=== PATIENT | male | born 1940 | race African-American/Black ===

== ENCOUNTER 2017-12-22 03:43 | Emergency (ER) | payer MEDICARE, OTHER ==
[2017-12-22] MEDS ORDERED: methylPREDNISolone Sod Succ/PF 125 MG/2 ML VIAL ONE (04:16)
[2017-12-22 04:35] LABS: #Lymphocytes 1.6 thou/uL (1.20-3.40); #Monocytes 0.4 thou/uL (0.11-0.59); #Neutrophils 2.8 thou/uL (1.40-6.50); %Basophils 0.6 % (0.0-1.0); %Eosinophils 0.7 % (0.0-10.0); %Monocytes 7.3 % (0.0-10.0); %Neutrophils 58.4 % (42.0-75.0); Hemoglobin 11.9 g/dL (14.0-18.0); Mean Corpuscular HGB CONC 33.5 g/dL (32.0-36.0); Mean Corpuscular Hemoglobin 28.4 pg (27.0-31.0); Mean Platelet Volume 8.6 fL (7.4-10.4); Platelet Count 146 thou/uL (130-400); RBC Distribution Width 13.6 % (11.5-14.5); White Blood Cell (WBC) Count 4.9 thou/uL (4.8-10.8)
[2017-12-22 05:01] LABS: ALT (SGPT) 25 U/L (8-55); AST (SGOT) 28 U/L (5-34); Albumin 4.3 g/dL (3.4-4.8); Alkaline Phosphatase 86 U/L (40-150); Anion Gap 15 mmol/L (10-20); BUN (Urea Nitrogen) 9 mg/dL (8.4-25.7); Bilirubin, Total 0.5 mg/dL (0.2-1.2); Calc. Creatinine Clearance 0 mL/min (70-130); Calcium 9.3 mg/dL (7.8-10.44); Carbon Dioxide 18 mmol/L (23-31); Chloride 110 mmol/L (98-107); Estimated GFR-MDRD Greater than 90; Globulin 3.9 g/dL (2.4-3.5); Glucose 104 mg/dL (83-110); Potassium 3.6 mmol/L (3.5-5.1); Protein, Total 8.2 g/dL (5.8-8.1); Sodium 139 mmol/L (136-145)
[2017-12-22 07:24] LABS: Bilirubin Negative (Negative); Blood, Urine Negative (Negative); Clarity CLEAR (Clear); Glucose, Urine (Dipstick) Negative (Negative); Leukocyte Negative (Negative); Nitrite Negative (Negative); Protein, Urine (Dipstick) Trace mg/dL (Neg-Trace); Specific Gravity, Urine 1.015 (1.002-1.036); Urobilinogen 0.2 mg/dL (0.2-1.0); pH, Urine 6.5 (5.0-9.0)
--- NOTE | 2017-12-22 08:09 | RAD ---
TWO VIEWS OF THE CHEST: COMPARISON: None. HISTORY: Cough for a few days. FINDINGS: Two views of the chest show a normal-size cardiomediastinal silhouette. There is a pacemaker with it s leads in the right atrium and ventricle. Retained pacer wires are seen overlying the left chest. There is no evidence of consolidation, mass, or pleural effusion. IMPRESSION: No evidence of acute cardiopulmonary disease. POS: [facility]
== END 2017-12-22 08:34 | disposition home or self-care (01) ==
LOC: ERS 03:43
DX: J44.1 Chronic obstructive pulmonary disease with (acute) exacerbation (principal); I10 Essential (primary) hypertension
CPT/HCPCS: 36415; 71046; 80053; 81003; 83880; 85025; 93005; 94640; 94760; 96374; J2930; J7620

== ENCOUNTER 2017-12-30 18:06 | Emergency (ER) | payer MEDICARE, OTHER ==
[2017-12-30 18:26] LABS: #Basophils 0.1 thou/uL (0.0-0.2); #Eosinphils 0.1 thou/uL (0.0-0.7); #Lymphocytes 2.4 thou/uL (1.20-3.40); #Monocytes 0.7 thou/uL (0.11-0.59); %Basophils 0.9 % (0.0-1.0); %Eosinophils 1.1 % (0.0-10.0); %Lymphocytes 39.3 % (21.0-51.0); %Monocytes 10.4 % (0.0-10.0); %Neutrophils 48.2 % (42.0-75.0); Hemoglobin 12.7 g/dL (14.0-18.0); Mean Corpuscular HGB CONC 32.7 g/dL (32.0-36.0); Mean Corpuscular Hemoglobin 28.6 pg (27.0-31.0); Mean Corpuscular Volume 87.6 fL (78.0-98.0); Mean Platelet Volume 8.7 fL (7.4-10.4); Platelet Count 198 thou/uL (130-400); RBC Distribution Width 13.7 % (11.5-14.5); Red Blood Cell (RBC) Count 4.43 mill/uL (4.70-6.10); White Blood Cell (WBC) Count 6.2 thou/uL (4.8-10.8)
--- NOTE | 2017-12-30 18:33 | RAD ---
CHEST ONE VIEW: 12/30/17 HISTORY: Chest pain since last night. COMPARISON: 12/22/17. FINDINGS: Portable upright chest demonstrates a right sided transvenous pacemaker with lead position in the rig ht atrium and right ventricle. There appear to be pacer wires from a remote left sided transvenous pa cemaker. Wire lead position is unchanged. Normal cardiac silhouette. Pulmonary vessels and hilum are normal. Chronic changes in the lung parenchyma. No consolidation or mass. No pneumothorax. Persistent air underneath the left hemidiaphragm likely representing air within the colon. IMPRESSION: No acute cardiopulmonary process. POS: [facility]
[2017-12-30 18:50] LABS: ALT (SGPT) 23 U/L (8-55); AST (SGOT) 19 U/L (5-34); Albumin 4.2 g/dL (3.4-4.8); Alkaline Phosphatase 78 U/L (40-150); Anion Gap 13 mmol/L (10-20); BUN (Urea Nitrogen) 8 mg/dL (8.4-25.7); Bilirubin, Total 0.6 mg/dL (0.2-1.2); CK (CPK) 315 U/L (30-200); Calc. Creatinine Clearance 0 mL/min (70-130); Calcium 9.1 mg/dL (7.8-10.44); Carbon Dioxide 23 mmol/L (23-31); Chloride 109 mmol/L (98-107); Estimated GFR-MDRD Greater than 90; Globulin 3.7 g/dL (2.4-3.5); Glucose 91 mg/dL (83-110); Potassium 3.3 mmol/L (3.5-5.1); Protein, Total 7.9 g/dL (5.8-8.1); Sodium 142 mmol/L (136-145)
[2017-12-30 18:53] LABS: Troponin I Less than 0.010 ng/mL (< 0.028)
[2017-12-30 18:55] LABS: CKMB 10.8 ng/mL (0-6.6)
[2017-12-30] MEDS ORDERED: Furosemide 20 MG/2 ML VIAL ONE (19:25)
[2017-12-30 22:04] LABS: Troponin I Less than 0.010 ng/mL (< 0.028)
== END 2017-12-30 22:45 | disposition home or self-care (01) ==
LOC: ERS 18:06
DX: R07.89 Other chest pain (principal); R60.0 Localized edema; J44.9 Chronic obstructive pulmonary disease, unspecified; I10 Essential (primary) hypertension; Z79.899 Other long term (current) drug therapy; Z79.82 Long term (current) use of aspirin
CPT/HCPCS: 36415; 71045; 80053; 82550; 82553; 83880; 84484; 85025; 93005; 94640; 96374; J1940; J7620

== ENCOUNTER 2018-01-19 08:51 | Outpatient (CLI) | payer MEDICARE, OTHER ==
--- NOTE | 2018-01-19 09:57 | RAD ---
CHEST TWO VIEWS: History: Chest pain. Comparison: 12-30-17 FINDINGS: Cardiac silhouette and pulmonary vasculature are unremarkable. Lungs remain hyperinflated with linear scarring at the lung bases. Mediastinum midline. Bilateral subclavian pacer wires are in place and u nchanged. On the lateral view, the oval density over the cardiac silhouette has the appearance of a small amoun t of pleural fluid within the right major fissure. IMPRESSION: COPD. Small amount of right pleural fluid and other findings are stable. POS: [facility]
== END 2018-01-19 08:52 | disposition home or self-care (01) ==
LOC: RAD 08:51
PROVIDERS: ATTEND Internal Medicine Critical Care Medicine
DX: R06.00 Dyspnea, unspecified (principal); J44.9 Chronic obstructive pulmonary disease, unspecified
CPT/HCPCS: 71046

== ENCOUNTER 2018-02-25 09:01 | Outpatient (CLI) | payer MEDICARE, OTHER | END 2018-02-25 09:02 | disposition home or self-care (01) | LOC: CP 09:01 | PROVIDERS: ATTEND Internal Medicine Critical Care Medicine | DX: J44.9 Chronic obstructive pulmonary disease, unspecified (principal) | CPT/HCPCS: 94060; 94727; 94729 ==

== ENCOUNTER 2018-07-27 10:24 | Outpatient (CLI) | payer MEDICARE, OTHER ==
[2018-07-27 11:13] LABS: Estimated GFR-MDRD - POC Greater than 90
--- NOTE | 2018-07-27 12:06 | CT ---
EXAM: Abdomen and pelvic CT scan with and without contrast: HISTORY: Neoplasm of prostate gland COMPARISON: None FINDINGS: Minimal streaky parenchymal changes in the lung bases as well as left lingular bulla. There is some heterogeneous abnormal asymmetric thickening in the region of the distal esophagus havi ng an appearance certainly concerning for the possibility of a distal esophageal mass. Consider follow-up barium swallow or endoscopy. Liver: Unremarkable. Gallbladder:Unremarkable. Pancreas:Unremarkable Spleen:Unremarkable. Adrenal glands:Unremarkable. Kidneys:No renal calculus or acute obstruction.Multiple bilateral renal cysts up to 3.6 cm on the right. No evidence for bowel obstruction. No CT evidence for acute appendicitis. The urinary bladder is unremarkable. No abscess, adenopathy, or abnormal fluid collection within the abdomen or pelvis. Bilateral hip joint arthrosis worse on the left with prominent acetabular intraosseous cystic change and possible osteonecrosis of the right hip. IMPRESSION: Abnormal nodular asymmetric thickening of the distal esophagus concerning for the possibility of a ma ss. Consider follow-up barium swallow or endoscopy. Bilateral renal cysts. Other findings as above.
--- NOTE | 2018-07-27 14:51 | NM ---
Nuclear medicine bone scan: Radiopharmaceutical: 29.9 mCi technetium 99m MDP, IV. HISTORY: Prostate cancer (malignant neoplasm of prostate) FINDINGS: There is a focus of increased radiotracer activity localizing to the left knee. Increased radiotracer activity is present projecting at the anteromedial right chest within the expected region of the med ial mid right rib near the costochondral junction. There are foci of increased radiotracer activity i nvolving the junction of the manubrium and sternal body as well as the bilateral sternoclavicular abdoulaye nts. Scattered degenerative activity of the spine, shoulders, left wrist, and bilateral feet/ankle ar e present. IMPRESSION: Nonspecific foci of increased ratio tracer activity are present throughout the axial and appendicular skeleton, some of which demonstrate degenerative pattern. There is a nonspecific focus of increased radiotracer activity at the level of the left knee, rounded in morphology, and therefore could locali ze to the patella. Correlate for history of injury within this region and dedicated radiographs of th e left knee are recommended. Focus of increased radiotracer activity overlying the junction of the manubrium and sternal body coul d either relate to degenerative focus versus metastatic process. Recommend correlation with PSA values, and imaging follow-up Transcribed Date/Time: 07/27/2018 3:33 PM
[2018-07-27] MEDS ORDERED: Iopamidol 370 76% 50 ML VIAL FS ONE (16:52)
== END 2018-07-27 10:25 | disposition home or self-care (01) ==
LOC: CT 10:24
PROVIDERS: ATTEND Urology
DX: C61 Malignant neoplasm of prostate (principal); N28.1 Cyst of kidney, acquired; R94.8 Abnormal results of function studies of other organs and systems
CPT/HCPCS: 74178; 78306; 82565; A9503

== ENCOUNTER 2020-03-21 08:55 | Outpatient (CLI) | payer MEDICARE, OTHER ==
--- NOTE | 2020-03-21 10:10 | CT ---
LOW DOSE CT SCAN OF THE CHEST WITHOUT IV CONTRAST FOR LUNG CANCER SCREENING: HISTORY: Nicotine dependence. Former smoker less than 1 pack a day for 25 years. He quit 20 years ago. COPD , shortness of breath. FINDINGS: There is a solid 3 mm peripheral nodule in the right upper lobe and a solid 3 mm nodule in the food inspector omedial aspect of the left upper lobe. Inferior to this is a 5 mm solid-appearing nodule. Bullous changes are seen bilaterally. There is a 4 mm peripheral solid nodule in the right upper lob e. There are mild atelectatic changes in the posterior lung bases. There are vascular calcifications without evidence of aneurysmal dilatation of the thoracic aorta. N o pleural or pericardial effusions are seen. There is subsegmental atelectatic change in the right m iddle lobe. There are degenerative changes in the spine. There are bilateral renal cysts. IMPRESSION: Lung RADS 2 - benign. RECOMMENDATION: Followup low-dose CT of the chest is recommended in 12 months. POS: [facility]
== END 2020-03-21 08:56 | disposition home or self-care (01) ==
LOC: BICCT 08:55
PROVIDERS: ATTEND Internal Medicine Critical Care Medicine
DX: Z12.2 Encounter for screening for malignant neoplasm of respiratory organs (principal); J44.9 Chronic obstructive pulmonary disease, unspecified; Z87.891 Personal history of nicotine dependence
CPT/HCPCS: G0297

== ENCOUNTER 2020-07-13 09:13 | Outpatient (CLI) | payer MEDICARE, OTHER | END 2020-07-13 09:14 | disposition home or self-care (01) | LOC: RAD 09:13 | PROVIDERS: ATTEND Internal Medicine | DX: Z11.59 Encounter for screening for other viral diseases (principal); K21.9 Gastro-esophageal reflux disease without esophagitis; R93.3 Abnormal findings on diagnostic imaging of other parts of digestive tract; R13.10 Dysphagia, unspecified | CPT/HCPCS: 74220 ==

== ENCOUNTER 2020-10-03 13:12 | Outpatient (CLI) | payer MEDICARE, OTHER | END 2020-10-03 13:13 | disposition home or self-care (01) | PROVIDERS: ATTEND Internal Medicine | DX: R13.12 Dysphagia, oropharyngeal phase (principal); R63.3 Feeding difficulties | CPT/HCPCS: 74230 ==

== ENCOUNTER 2021-01-08 09:26 | Outpatient (CLI) | payer MEDICARE, OTHER | END 2021-01-08 09:27 | disposition home or self-care (01) | LOC: BICRAD 09:26 | PROVIDERS: ATTEND Internal Medicine Critical Care Medicine | DX: R06.00 Dyspnea, unspecified (principal); R09.89 Other specified symptoms and signs involving the circulatory and respiratory systems; J90 Pleural effusion, not elsewhere classified | CPT/HCPCS: 71046 ==

== ENCOUNTER 2021-01-15 09:55 | Outpatient (CLI) | payer MEDICARE, OTHER | END 2021-01-15 09:56 | disposition home or self-care (01) | LOC: CT 09:55 | PROVIDERS: ATTEND Internal Medicine Critical Care Medicine | DX: J44.9 Chronic obstructive pulmonary disease, unspecified (principal); K22.8 Other specified diseases of esophagus; R91.8 Other nonspecific abnormal finding of lung field | CPT/HCPCS: 71250 ==

== ENCOUNTER 2021-12-13 21:20 | Inpatient (IN) | payer MEDICARE, OTHER ==
[~2021-12-13 21:20] MED LIST: Iopamidol-370 76% 500 ML 1 ML ONE
[2021-12-13] MEDS ORDERED: Aspirin Chewable 81 MG TAB ONE (21:49)
[2021-12-13] MEDS ORDERED: Nitroglycerin 2% Ointment 1 INCH/1 GM Packet ONE (21:49)
[2021-12-13 22:35] LABS: #Eosinphils 0.1 thou/uL (0.0-0.7); #Lymphocytes 1.4 thou/uL (1.20-3.40); #Monocytes 0.4 thou/uL (0.11-0.59); #Neutrophils 3.3 thou/uL (1.40-6.50); %Basophils 0.3 % (0.0-1.0); %Lymphocytes 27.2 % (21.0-51.0); %Neutrophils 64.5 % (42.0-75.0); Hemoglobin 10.3 g/dL (14.0-18.0); Mean Corpuscular HGB CONC 32.4 g/dL (32.0-36.0); Mean Corpuscular Hemoglobin 25.8 pg (27.0-31.0); Mean Corpuscular Volume 79.7 fL (78.0-98.0); Mean Platelet Volume 11.3 fL (7.4-10.4); Platelet Count 168 thou/uL (130-400); RBC Distribution Width 15.3 % (11.5-14.5); Red Blood Cell (RBC) Count 3.98 mill/uL (4.70-6.10)
[2021-12-13 22:43] LABS: ALT (SGPT) 16 U/L (8-55); AST (SGOT) 23 U/L (5-34); Albumin 4.1 g/dL (3.4-4.8); Alkaline Phosphatase 95 U/L (40-110); Anion Gap 15 mmol/L (10-20); BUN (Urea Nitrogen) 5 mg/dL (8.4-25.7); Bilirubin, Total 0.7 mg/dL (0.2-1.2); Calc. Creatinine Clearance 0 mL/min (70-130); Calcium 8.9 mg/dL (7.8-10.44); Carbon Dioxide 25 mmol/L (23-31); Chloride 106 mmol/L (98-107); Estimated GFR 98; Glucose 89 mg/dL (83-110); Protein, Total 8.1 g/dL (5.8-8.1); Sodium 143 mmol/L (136-145)
[2021-12-13] MEDS ORDERED: Nitroglycerin 0.4 MG TAB (25 Tab Bottle) SL PRN (23:08)
[2021-12-13] MEDS ORDERED: HYDROcodone/Acetaminophen 7.5/325 mg Tablet PO PRN (23:08)
[2021-12-13] MEDS ORDERED: Ondansetron PF 4 MG/2 ML Vial IVP PRN (23:08)
[2021-12-13] MEDS ORDERED: Zolpidem Tartrate 5 MG TAB PO PRN (23:08)
[2021-12-13] MEDS ORDERED: Potassium Chloride 20 MEQ TAB ONE (23:10)
[2021-12-13] MEDS ORDERED: hydrALAZINE 20 MG/ML VIAL SLOW IVP PRN (23:11)
[2021-12-13] MEDS ORDERED: Morphine 2 MG/ML VIAL SLOW IVP PRN (23:11)
[2021-12-13] MEDS ORDERED: Sodium Chloride 0.9% 1,000 ML IV SCH (23:15)
[2021-12-13] MEDS ORDERED: GUAIFENESIN SF SOLN 200 MG/10 ML UDCUP PO PRN (23:25)
[2021-12-13] MEDS ORDERED: Magnesium 2 GM/50 ML(in water) 2 GM in Premix Bag 1 BAG IVPB SCH (23:30)
[2021-12-13] MEDS ORDERED: Potassium Bicarbonate/Cit Ac 20 MEQ TAB PO SCH (23:30)
[2021-12-13] MEDS ORDERED: Tamsulosin HCl 0.4 MG CAP PO SCH (23:45)
[2021-12-13] MEDS ORDERED: Amlodipine 5 MG TAB PO SCH (23:45)
[2021-12-14 00:02] LABS: Magnesium 1.8 mg/dL (1.6-2.6)
[2021-12-14 02:32] LABS: Troponin I Less than 0.010 ng/mL (< 0.028)
[2021-12-14] MEDS: NS 0.9% w/ 20 MEQ KCL 1,000 ML/1,000 ML BAG IV SCH ×2 (02:46→16:28)
[2021-12-14 04:49] LABS: #Eosinphils 0.1 thou/uL (0.0-0.7); #Lymphocytes 1.2 thou/uL (1.20-3.40); #Monocytes 0.4 thou/uL (0.11-0.59); #Neutrophils 2.8 thou/uL (1.40-6.50); %Basophils 0.6 % (0.0-1.0); %Eosinophils 1.2 % (0.0-10.0); %Lymphocytes 27.4 % (21.0-51.0); %Monocytes 9.3 % (0.0-10.0); %Neutrophils 61.5 % (42.0-75.0); Hemoglobin 10.4 g/dL (14.0-18.0); Mean Corpuscular HGB CONC 32.6 g/dL (32.0-36.0); Mean Corpuscular Hemoglobin 26.2 pg (27.0-31.0); Mean Corpuscular Volume 80.4 fL (78.0-98.0); Mean Platelet Volume 10.6 fL (7.4-10.4); Platelet Count 165 thou/uL (130-400); RBC Distribution Width 15.2 % (11.5-14.5); Red Blood Cell (RBC) Count 3.98 mill/uL (4.70-6.10); White Blood Cell (WBC) Count 4.5 thou/uL (4.8-10.8)
[2021-12-14 05:08] LABS: ALT (SGPT) 15 U/L (8-55); AST (SGOT) 22 U/L (5-34); Albumin 3.9 g/dL (3.4-4.8); Alkaline Phosphatase 90 U/L (40-110); Anion Gap 14 mmol/L (10-20); BUN (Urea Nitrogen) 4 mg/dL (8.4-25.7); Bilirubin, Total 0.7 mg/dL (0.2-1.2); Calc. Creatinine Clearance 98 mL/min (70-130); Calcium 9.2 mg/dL (7.8-10.44); Carbon Dioxide 26 mmol/L (23-31); Cardiac Risk 4.7 (Less than 4.5); Chloride 106 mmol/L (98-107); Cholesterol 161 mg/dl (< 200 Desired); Estimated GFR 101; Globulin 4.2 g/dL (2.4-3.5); Glucose 87 mg/dL (83-110); HDL Cholesterol 34 mg/dL (>60 Neg Risk); LDL Cholesterol, Calculated 111 mg/dL; Potassium 3.2 mmol/L (3.5-5.1); Protein, Total 8.1 g/dL (5.8-8.1); Sodium 143 mmol/L (136-145); Triglycerides 78 mg/dL (Less than 150)
[2021-12-14 05:12] LABS: Troponin I 0.013 ng/mL (< 0.028)
[2021-12-14] MEDS: Enoxaparin Sodium 40 MG/0.4 ML SYRINGE SC SCH (09:00)
[2021-12-14 09:50] LABS: SARS-CoV-2 NAA Rapid Test Not Detected (NotDetected)
[2021-12-14] MEDS: Cefepime 1 GM in Sodium Chloride 0.9% 100 ML IVPB SCH ×2 (12:25→23:10)
[2021-12-14] MEDS: Ferrous Sulfate 325 MG TAB PO SCH ×2 (15:06→17:51)
[2021-12-14] MEDS: Aspirin Chewable 81 MG TAB PO SCH (15:06)
[2021-12-14] MEDS: Amlodipine 5 MG TAB PO SCH (15:06)
[2021-12-14] MEDS: Clopidogrel Bisulfate 75 MG TAB PO SCH (15:07)
[2021-12-14] MEDS: Famotidine 20 MG TAB PO SCH ×2 (15:07→20:51)
[2021-12-14] MEDS: Albuterol Sulfate 2.5 mg/0.5 ml Neb NEB PRN (16:25)
[2021-12-14] MEDS ORDERED: methylPREDNISolone Sod Succ/PF 125 MG/2 ML VIAL IVP SCH (18:00)
[2021-12-14] MEDS: Tamsulosin HCl 0.4 MG CAP PO SCH (20:52)
[2021-12-14] MEDS ORDERED: Simvastatin 40 MG TAB PO SCH (21:00)
[2021-12-14] MEDS: methylPREDNISolone Sod Succ 40 MG VIAL IVP SCH (23:11)
[2021-12-15] MEDS ORDERED: Albuterol Sulfate 2.5 mg/3 ml Neb ONE (01:06)
[2021-12-15] MEDS: NS 0.9% w/ 20 MEQ KCL 1,000 ML/1,000 ML BAG IV SCH ×2 (04:59→19:08)
[2021-12-15] MEDS: methylPREDNISolone Sod Succ 40 MG VIAL IVP SCH ×4 (05:32→23:04)
[2021-12-15] MEDS: Albuterol Sulfate 2.5 mg/0.5 ml Neb NEB PRN ×2 (07:03→20:39)
[2021-12-15] MEDS: Ferrous Sulfate 325 MG TAB PO SCH ×3 (08:36→18:37)
[2021-12-15] MEDS: Enoxaparin Sodium 40 MG/0.4 ML SYRINGE SC SCH (08:37)
[2021-12-15] MEDS: Famotidine 20 MG TAB PO SCH ×4 (08:37→21:16)
[2021-12-15] MEDS: Aspirin Chewable 81 MG TAB PO SCH ×2 (08:37→08:40)
[2021-12-15] MEDS: Amlodipine 5 MG TAB PO SCH ×2 (08:37→08:40)
[2021-12-15] MEDS: Clopidogrel Bisulfate 75 MG TAB PO SCH ×2 (08:37→08:41)
[2021-12-15] MEDS: Cefepime 1 GM in Sodium Chloride 0.9% 100 ML IVPB SCH ×2 (12:25→23:05)
[2021-12-15] MEDS ORDERED: Latanoprost 0.005% Ophth Soln 2.5 ml Bottle EA EYE SCH (21:00)
[2021-12-15] MEDS ORDERED: Dorzolamide HCl 2% Ophth Soln 10 ml Bottle EA EYE SCH (21:00)
[2021-12-15] MEDS: Tamsulosin HCl 0.4 MG CAP PO SCH ×2 (21:13→21:17)
[2021-12-15] MEDS: Atorvastatin Calcium 20 MG TAB PO SCH ×2 (21:13→21:17)
[2021-12-15] MEDS ORDERED: Famotidine/PF 20 mg/2ml Vial SLOW IVP SCH (22:30)
[2021-12-16] MEDS: Albuterol Sulfate 2.5 mg/0.5 ml Neb NEB PRN (04:49)
[2021-12-16] MEDS: methylPREDNISolone Sod Succ 40 MG VIAL IVP SCH ×3 (05:05→21:37)
[2021-12-16] MEDS: BRINZOLAMIDE 1% EA EYE SCH ×3 (09:00→21:36)
[2021-12-16] MEDS ORDERED: Electrolyte Replacement Protocol 1 EACH FS PRN (10:15)
[2021-12-16 10:20] LABS: #Eosinphils 0.1 thou/uL (0.0-0.7); #Lymphocytes 0.6 thou/uL (1.20-3.40); #Monocytes 0.1 thou/uL (0.11-0.59); #Neutrophils 4.8 thou/uL (1.40-6.50); %Basophils 0.3 % (0.0-1.0); %Eosinophils 0.9 % (0.0-10.0); %Lymphocytes 10.3 % (21.0-51.0); %Monocytes 2.4 % (0.0-10.0); %Neutrophils 86.1 % (42.0-75.0); Hemoglobin 11.9 g/dL (14.0-18.0); Mean Corpuscular HGB CONC 31.3 g/dL (32.0-36.0); Mean Corpuscular Hemoglobin 25.2 pg (27.0-31.0); Mean Corpuscular Volume 80.7 fL (78.0-98.0); Mean Platelet Volume 11.4 fL (7.4-10.4); Platelet Count 219 thou/uL (130-400); RBC Distribution Width 15.8 % (11.5-14.5); Red Blood Cell (RBC) Count 4.71 mill/uL (4.70-6.10); White Blood Cell (WBC) Count 5.6 thou/uL (4.8-10.8)
[2021-12-16] MEDS: NS 0.9% w/ 20 MEQ KCL 1,000 ML/1,000 ML BAG IV SCH (10:23)
[2021-12-16] MEDS: Famotidine/PF 20 mg/2ml Vial SLOW IVP SCH ×2 (10:24→21:37)
[2021-12-16] MEDS: Clopidogrel Bisulfate 75 MG TAB PO SCH (10:24)
[2021-12-16] MEDS: Aspirin Chewable 81 MG TAB PO SCH (10:25)
[2021-12-16] MEDS: Amlodipine 5 MG TAB PO SCH (10:25)
[2021-12-16] MEDS: Ferrous Sulfate 325 MG TAB PO SCH ×2 (10:25→18:25)
[2021-12-16 10:41] LABS: Anion Gap 24 mmol/L (10-20); BUN (Urea Nitrogen) 11 mg/dL (8.4-25.7); Calc. Creatinine Clearance 76 mL/min (70-130); Calcium 10.2 mg/dL (7.8-10.44); Carbon Dioxide 11 mmol/L (23-31); Chloride 115 mmol/L (98-107); Estimated GFR 93; Glucose 90 mg/dL (83-110); Magnesium 2.1 mg/dL (1.6-2.6); Phosphorus 2.7 mg/dL (2.3-4.7); Sodium 145 mmol/L (136-145)
[2021-12-16] MEDS: Sodium Chloride 0.45% 1,000 ML IV SCH (11:20)
[2021-12-16] MEDS: Cefepime 1 GM in Sodium Chloride 0.9% 100 ML IVPB SCH (12:30)
[2021-12-16] MEDS ORDERED: Fentanyl 100 MCG/2 ML VIAL ONE (12:52)
[2021-12-16] MEDS ORDERED: PROPOFOL 200 MG/20 ML VIAL ONE (13:07)
[2021-12-16] MEDS ORDERED: methylPREDNISolone Sod Succ 40 MG VIAL IVP SCH (14:00)
[2021-12-16] MEDS: Tamsulosin HCl 0.4 MG CAP PO SCH (21:32)
[2021-12-16] MEDS: Latanoprost 0.005% Ophth Soln 2.5 ml Bottle EA EYE SCH (21:34)
[2021-12-16] MEDS: Atorvastatin Calcium 20 MG TAB PO SCH (21:37)
[2021-12-17] MEDS: Cefepime 1 GM in Sodium Chloride 0.9% 100 ML IVPB SCH ×2 (00:36→11:50)
[2021-12-17 04:45] LABS: #Lymphocytes 0.5 thou/uL (1.20-3.40); #Monocytes 0.4 thou/uL (0.11-0.59); #Neutrophils 5.3 thou/uL (1.40-6.50); %Eosinophils 0.1 % (0.0-10.0); %Lymphocytes 7.3 % (21.0-51.0); %Monocytes 6.5 % (0.0-10.0); %Neutrophils 86.1 % (42.0-75.0); Hemoglobin 11.3 g/dL (14.0-18.0); Mean Corpuscular HGB CONC 32.1 g/dL (32.0-36.0); Mean Corpuscular Hemoglobin 25.7 pg (27.0-31.0); Mean Corpuscular Volume 79.8 fL (78.0-98.0); Mean Platelet Volume 11.3 fL (7.4-10.4); Platelet Count 174 thou/uL (130-400); RBC Distribution Width 15.6 % (11.5-14.5); Red Blood Cell (RBC) Count 4.41 mill/uL (4.70-6.10); White Blood Cell (WBC) Count 6.2 thou/uL (4.8-10.8)
[2021-12-17] MEDS: methylPREDNISolone Sod Succ 40 MG VIAL IVP SCH ×2 (05:02→14:33)
[2021-12-17 05:08] LABS: Anion Gap 15 mmol/L (10-20); BUN (Urea Nitrogen) 16 mg/dL (8.4-25.7); Calc. Creatinine Clearance 87 mL/min (70-130); Calcium 9.3 mg/dL (7.8-10.44); Carbon Dioxide 22 mmol/L (23-31); Chloride 110 mmol/L (98-107); Estimated GFR 97; Glucose 191 mg/dL (83-110); Potassium 3.5 mmol/L (3.5-5.1); Sodium 143 mmol/L (136-145)
[2021-12-17] MEDS ORDERED: Potassium Chloride 20 MEQ TAB PO SCH (08:00)
[2021-12-17] MEDS: BRINZOLAMIDE 1% EA EYE SCH ×2 (08:14→14:36)
[2021-12-17] MEDS: Sodium Chloride 0.45% 1,000 ML IV SCH (08:15)
[2021-12-17] MEDS: Ferrous Sulfate 325 MG TAB PO SCH ×2 (08:17→16:21)
[2021-12-17] MEDS: Amlodipine 5 MG TAB PO SCH ×2 (08:18→21:13)
[2021-12-17] MEDS: Aspirin Chewable 81 MG TAB PO SCH (08:18)
[2021-12-17] MEDS: Clopidogrel Bisulfate 75 MG TAB PO SCH (08:18)
[2021-12-17] MEDS: Famotidine/PF 20 mg/2ml Vial SLOW IVP SCH (08:18)
[2021-12-17] MEDS: Acetaminophen 325 MG TAB PO PRN (17:10)
[2021-12-17] MEDS: Latanoprost 0.005% Ophth Soln 2.5 ml Bottle EA EYE SCH (17:11)
[2021-12-17] MEDS: predniSONE 20 MG TAB PER TUBE SCH (17:11)
[2021-12-17] MEDS: Atorvastatin Calcium 20 MG TAB PO SCH (21:12)
[2021-12-17] MEDS: Tamsulosin HCl 0.4 MG CAP PO SCH (21:13)
[2021-12-17] MEDS: Doxycycline 100 MG CAP PER TUBE SCH (21:13)
[2021-12-18] MEDS: Aspirin Chewable 81 MG TAB PO SCH (08:47)
[2021-12-18] MEDS: Amlodipine 5 MG TAB PO SCH ×2 (08:47→20:08)
[2021-12-18] MEDS: Doxycycline 100 MG CAP PER TUBE SCH ×2 (08:47→20:08)
[2021-12-18] MEDS: Acetaminophen 325 MG TAB PO PRN (08:47)
[2021-12-18] MEDS: Heparin 5,000 UNITS/ML VIAL SC SCH ×2 (08:47→20:11)
[2021-12-18] MEDS: BRINZOLAMIDE 1% EA EYE SCH ×2 (08:50→20:10)
[2021-12-18] MEDS: predniSONE 20 MG TAB PER TUBE SCH ×2 (08:53→17:01)
[2021-12-18] MEDS: Lansoprazole 3 MG/ML ORAL SUSPENSION PER TUBE SCH (09:26)
[2021-12-18 14:32] VITALS: BMI 21.2
[2021-12-18] MEDS: Mometasone 200 MCG/Formoterol 5 MCG 120 PUFF INHALER INH SCH (19:04)
[2021-12-18] MEDS: Tamsulosin HCl 0.4 MG CAP PO SCH (20:08)
[2021-12-18] MEDS: Atorvastatin Calcium 20 MG TAB PO SCH (20:08)
[2021-12-18] MEDS: Latanoprost 0.005% Ophth Soln 2.5 ml Bottle EA EYE SCH (20:10)
[2021-12-19 05:06] LABS: #Lymphocytes 1.1 thou/uL (1.20-3.40); #Monocytes 0.5 thou/uL (0.11-0.59); #Neutrophils 4.5 thou/uL (1.40-6.50); %Basophils 0.7 % (0.0-1.0); %Eosinophils 0.1 % (0.0-10.0); %Lymphocytes 17.8 % (21.0-51.0); %Monocytes 7.4 % (0.0-10.0); Hemoglobin 11.1 g/dL (14.0-18.0); Mean Corpuscular HGB CONC 31.1 g/dL (32.0-36.0); Mean Corpuscular Hemoglobin 25.3 pg (27.0-31.0); Mean Corpuscular Volume 81.4 fL (78.0-98.0); Mean Platelet Volume 11.4 fL (7.4-10.4); Platelet Count 141 thou/uL (130-400); RBC Distribution Width 15.5 % (11.5-14.5); Red Blood Cell (RBC) Count 4.39 mill/uL (4.70-6.10); White Blood Cell (WBC) Count 6.1 thou/uL (4.8-10.8)
[2021-12-19 05:31] LABS: Anion Gap 13 mmol/L (10-20); BUN (Urea Nitrogen) 16 mg/dL (8.4-25.7); Calc. Creatinine Clearance 108 mL/min (70-130); Calcium 8.9 mg/dL (7.8-10.44); Carbon Dioxide 30 mmol/L (23-31); Chloride 101 mmol/L (98-107); Estimated GFR 104; Glucose 120 mg/dL (83-110); Magnesium 1.9 mg/dL (1.6-2.6); Potassium 4.3 mmol/L (3.5-5.1); Sodium 140 mmol/L (136-145)
[2021-12-19 05:34] LABS: Phosphorus 1.1 mg/dL (2.3-4.7)
[2021-12-19] MEDS ORDERED: Magnesium 2 GM/50 ML(in water) 2 GM in Premix Bag 1 BAG IVPB SCH (06:15)
[2021-12-19] MEDS: Acetaminophen 325 MG TAB PO PRN (06:39)
[2021-12-19] MEDS: PHOS-NAK 1 PKT PACK PER TUBE SCH ×4 (06:41→17:37)
[2021-12-19] MEDS: Mometasone 200 MCG/Formoterol 5 MCG 120 PUFF INHALER INH SCH ×2 (06:45→22:46)
[2021-12-19] MEDS ORDERED: Sodium Phosphate 15 MMOL in Sodium Chloride 0.9% 250 ML 250 ML IVPB SCH (09:00)
[2021-12-19] MEDS: Lansoprazole 3 MG/ML ORAL SUSPENSION PER TUBE SCH (10:00)
[2021-12-19] MEDS: BRINZOLAMIDE 1% EA EYE SCH ×2 (11:08→21:14)
[2021-12-19] MEDS: Heparin 5,000 UNITS/ML VIAL SC SCH ×2 (11:09→21:15)
[2021-12-19] MEDS: Doxycycline 100 MG CAP PER TUBE SCH ×2 (11:09→21:14)
[2021-12-19] MEDS: predniSONE 20 MG TAB PER TUBE SCH ×2 (11:10→17:09)
[2021-12-19] MEDS: Aspirin Chewable 81 MG TAB PO SCH (11:10)
[2021-12-19] MEDS: Amlodipine 5 MG TAB PO SCH ×2 (11:14→21:15)
[2021-12-19] MEDS: Latanoprost 0.005% Ophth Soln 2.5 ml Bottle EA EYE SCH (21:11)
[2021-12-19] MEDS: Atorvastatin Calcium 20 MG TAB PO SCH (21:14)
[2021-12-19] MEDS: Tamsulosin HCl 0.4 MG CAP PO SCH (21:14)
[2021-12-19] MEDS ORDERED: Albuterol 200 PUFF (6.7GM INHALER) INH PRN (23:02)
[2021-12-20] MEDS ORDERED: Albuterol 200 PUFF (6.7GM INHALER) INH SCH (01:00)
[2021-12-20] MEDS: Mometasone 200 MCG/Formoterol 5 MCG 120 PUFF INHALER INH SCH ×2 (05:37→18:30)
[2021-12-20 07:14] LABS: Hemoglobin 11.9 g/dL (14.0-18.0); Mean Corpuscular HGB CONC 31.7 g/dL (32.0-36.0); Mean Corpuscular Hemoglobin 25.7 pg (27.0-31.0); Mean Corpuscular Volume 81.1 fL (78.0-98.0); Mean Platelet Volume 10.2 fL (7.4-10.4); Platelet Count 140 thou/uL (130-400); RBC Distribution Width 16.1 % (11.5-14.5); Red Blood Cell (RBC) Count 4.63 mill/uL (4.70-6.10); White Blood Cell (WBC) Count 6.4 thou/uL (4.8-10.8)
[2021-12-20 07:32] LABS: Albumin 3.3 g/dL (3.4-4.8); Anion Gap 16 mmol/L (10-20); BUN (Urea Nitrogen) 19 mg/dL (8.4-25.7); BUN/Creatinine Ratio 36.54; Calc. Creatinine Clearance 103 mL/min (70-130); Calcium 8.8 mg/dL (7.8-10.44); Carbon Dioxide 27 mmol/L (23-31); Chloride 102 mmol/L (98-107); Estimated GFR 103; Glucose 131 mg/dL (83-110); Magnesium 2.3 mg/dL (1.6-2.6); Phosphorus 3.7 mg/dL (2.3-4.7); Potassium 5.1 mmol/L (3.5-5.1); Sodium 140 mmol/L (136-145)
[2021-12-20] MEDS: Doxycycline 100 MG CAP PER TUBE SCH ×2 (08:56→21:14)
[2021-12-20] MEDS: Aspirin Chewable 81 MG TAB PO SCH (08:56)
[2021-12-20] MEDS: predniSONE 20 MG TAB PER TUBE SCH ×2 (08:56→18:00)
[2021-12-20] MEDS: Amlodipine 5 MG TAB PO SCH ×2 (08:57→21:13)
[2021-12-20] MEDS: Heparin 5,000 UNITS/ML VIAL SC SCH ×2 (09:00→21:56)
[2021-12-20] MEDS: BRINZOLAMIDE 1% EA EYE SCH ×2 (09:01→21:14)
[2021-12-20 09:26] LABS: Band 1 % (5-11); Hypochromia SLIGHT = 6-15 cells (100X) (0-5/hpf); Lymphocytes 22 % (21-51); MDiff Complete? YES; Monocytes 6 % (0-10); Myelocyte 1 % (0-0); Neutrophil 67 % (42-75); Nucleated RBC 1 % (0); Ovalocytes SLIGHT = 2-5 cells (100X) (0-1/hpf); Platelet Clumps SLIGHT; Platelet Morphology Comment Appears Adequate; Polychromasia SLIGHT = 2-3 cells (100X) (0-2/hpf); Reactive Lymphocytes 3 % (0-10)
[2021-12-20] MEDS: Acetaminophen 325 MG TAB PO PRN (15:23)
[2021-12-20] MEDS: Latanoprost 0.005% Ophth Soln 2.5 ml Bottle EA EYE SCH (18:00)
[2021-12-20] MEDS: Lansoprazole 3 MG/ML ORAL SUSPENSION PER TUBE SCH (18:01)
[2021-12-20] MEDS: Atorvastatin Calcium 20 MG TAB PO SCH (21:14)
[2021-12-20] MEDS: Tamsulosin HCl 0.4 MG CAP PO SCH (21:15)
[2021-12-21 06:15] LABS: #Monocytes 0.5 thou/uL (0.11-0.59); #Neutrophils 4.7 thou/uL (1.40-6.50); %Basophils 0.5 % (0.0-1.0); %Eosinophils 0.2 % (0.0-10.0); %Lymphocytes 27.4 % (21.0-51.0); %Monocytes 7.3 % (0.0-10.0); %Neutrophils 64.5 % (42.0-75.0); Mean Corpuscular HGB CONC 32.1 g/dL (32.0-36.0); Mean Corpuscular Hemoglobin 25.9 pg (27.0-31.0); Mean Corpuscular Volume 80.8 fL (78.0-98.0); Mean Platelet Volume 11.7 fL (7.4-10.4); Platelet Count 197 thou/uL (130-400); RBC Distribution Width 16.3 % (11.5-14.5); Red Blood Cell (RBC) Count 4.25 mill/uL (4.70-6.10); White Blood Cell (WBC) Count 7.3 thou/uL (4.8-10.8)
[2021-12-21] MEDS: Mometasone 200 MCG/Formoterol 5 MCG 120 PUFF INHALER INH SCH ×2 (07:15→20:38)
[2021-12-21] MEDS: Amlodipine 5 MG TAB PO SCH ×2 (08:57→21:06)
[2021-12-21] MEDS: Aspirin Chewable 81 MG TAB PO SCH (08:57)
[2021-12-21] MEDS: Lansoprazole 3 MG/ML ORAL SUSPENSION PER TUBE SCH (08:57)
[2021-12-21] MEDS: Doxycycline 100 MG CAP PER TUBE SCH ×2 (08:57→21:06)
[2021-12-21] MEDS: BRINZOLAMIDE 1% EA EYE SCH ×2 (08:58→17:52)
[2021-12-21] MEDS: predniSONE 20 MG TAB PER TUBE SCH ×2 (08:58→17:49)
[2021-12-21] MEDS: Heparin 5,000 UNITS/ML VIAL SC SCH ×2 (08:58→21:06)
[2021-12-21] MEDS: Latanoprost 0.005% Ophth Soln 2.5 ml Bottle EA EYE SCH (17:51)
[2021-12-21] MEDS: Atorvastatin Calcium 20 MG TAB PO SCH (21:06)
[2021-12-21] MEDS: Tamsulosin HCl 0.4 MG CAP PO SCH (21:06)
[2021-12-22] MEDS: Mometasone 200 MCG/Formoterol 5 MCG 120 PUFF INHALER INH SCH ×2 (06:51→19:12)
[2021-12-22] MEDS: Amlodipine 5 MG TAB PO SCH ×2 (09:12→21:20)
[2021-12-22] MEDS: Lansoprazole 3 MG/ML ORAL SUSPENSION PER TUBE SCH (09:13)
[2021-12-22] MEDS: Doxycycline 100 MG CAP PER TUBE SCH ×2 (09:13→21:20)
[2021-12-22] MEDS: Aspirin Chewable 81 MG TAB PO SCH (09:13)
[2021-12-22] MEDS: predniSONE 20 MG TAB PER TUBE SCH ×2 (09:13→17:18)
[2021-12-22] MEDS: Heparin 5,000 UNITS/ML VIAL SC SCH ×2 (09:13→21:20)
[2021-12-22] MEDS: BRINZOLAMIDE 1% EA EYE SCH ×2 (09:28→17:30)
[2021-12-22] MEDS: Latanoprost 0.005% Ophth Soln 2.5 ml Bottle EA EYE SCH (17:30)
[2021-12-22] MEDS: Tamsulosin HCl 0.4 MG CAP PO SCH (21:20)
[2021-12-22] MEDS: Atorvastatin Calcium 20 MG TAB PO SCH (21:20)
[2021-12-23] MEDS: Mometasone 200 MCG/Formoterol 5 MCG 120 PUFF INHALER INH SCH ×2 (06:36→18:10)
[2021-12-23] MEDS: Lansoprazole 3 MG/ML ORAL SUSPENSION PER TUBE SCH (09:00)
[2021-12-23] MEDS: Aspirin Chewable 81 MG TAB PO SCH (09:41)
[2021-12-23] MEDS: predniSONE 20 MG TAB PER TUBE SCH ×2 (09:41→17:35)
[2021-12-23] MEDS: Amlodipine 5 MG TAB PO SCH ×2 (09:41→21:38)
[2021-12-23] MEDS: Doxycycline 100 MG CAP PER TUBE SCH ×2 (09:41→21:39)
[2021-12-23] MEDS: Heparin 5,000 UNITS/ML VIAL SC SCH ×2 (09:42→21:37)
[2021-12-23] MEDS: BRINZOLAMIDE 1% EA EYE SCH ×2 (09:43→21:41)
[2021-12-23] MEDS ORDERED: Senokot 8.6 MG TAB PER TUBE SCH (14:15)
[2021-12-23] MEDS: Atorvastatin Calcium 20 MG TAB PO SCH (21:37)
[2021-12-23] MEDS: Tamsulosin HCl 0.4 MG CAP PO SCH (21:39)
[2021-12-23] MEDS: Senokot 8.6 MG TAB PER TUBE SCH (21:40)
[2021-12-23] MEDS: Latanoprost 0.005% Ophth Soln 2.5 ml Bottle EA EYE SCH (21:41)
[2021-12-24] MEDS: Mometasone 200 MCG/Formoterol 5 MCG 120 PUFF INHALER INH SCH ×2 (06:30→19:18)
[2021-12-24 06:59] LABS: Phosphorus 3.7 mg/dL (2.3-4.7)
[2021-12-24] MEDS: Aspirin Chewable 81 MG TAB PO SCH (08:46)
[2021-12-24] MEDS: Lansoprazole 3 MG/ML ORAL SUSPENSION PER TUBE SCH (08:46)
[2021-12-24] MEDS: Heparin 5,000 UNITS/ML VIAL SC SCH ×2 (08:46→22:06)
[2021-12-24] MEDS: Doxycycline 100 MG CAP PER TUBE SCH ×2 (08:46→22:06)
[2021-12-24] MEDS: Senokot 8.6 MG TAB PER TUBE SCH ×2 (08:46→22:06)
[2021-12-24] MEDS: predniSONE 20 MG TAB PER TUBE SCH ×2 (08:48→17:56)
[2021-12-24] MEDS: Amlodipine 5 MG TAB PO SCH ×2 (08:48→22:06)
[2021-12-24] MEDS: BRINZOLAMIDE 1% EA EYE SCH ×2 (08:49→17:56)
[2021-12-24] MEDS: Latanoprost 0.005% Ophth Soln 2.5 ml Bottle EA EYE SCH (17:56)
[2021-12-24] MEDS: Atorvastatin Calcium 20 MG TAB PO SCH (22:06)
[2021-12-24] MEDS: Tamsulosin HCl 0.4 MG CAP PO SCH (22:06)
[2021-12-25] MEDS: Mometasone 200 MCG/Formoterol 5 MCG 120 PUFF INHALER INH SCH (07:48)
[2021-12-25] MEDS: Amlodipine 5 MG TAB PO SCH (08:35)
[2021-12-25] MEDS: Doxycycline 100 MG CAP PER TUBE SCH (08:36)
[2021-12-25] MEDS: Aspirin Chewable 81 MG TAB PO SCH (08:36)
[2021-12-25] MEDS: Senokot 8.6 MG TAB PER TUBE SCH (08:36)
[2021-12-25] MEDS: predniSONE 20 MG TAB PER TUBE SCH (08:36)
[2021-12-25] MEDS: Lansoprazole 3 MG/ML ORAL SUSPENSION PER TUBE SCH (08:37)
[2021-12-25] MEDS: Heparin 5,000 UNITS/ML VIAL SC SCH (08:37)
[2021-12-25] MEDS: BRINZOLAMIDE 1% EA EYE SCH (08:37)
[2021-12-25] MEDS ORDERED: Ferrous Sulfate 325 MG TAB PO SCH (09:00)
[2021-12-25] MEDS ORDERED: Bisacodyl 10 MG SUPP PR SCH (13:30)
[2021-12-25 17:36] VITALS: BP 112/76; TEMP 97.1
== END 2021-12-25 17:15 | DRG 189 ==
LOC: ERS 21:20 → 2SW 23:08 → OBSVTOIN 12-14 17:39 → SURG A 12-19 18:42 → UNDODISIN 12-25 13:27
PROVIDERS: ADMIT Internal Medicine; ATTEND Internal Medicine
PROC: 0DH63UZ Insertion of Feeding Device into Stomach, Percutaneous Approach (ICD-10-PCS; principal; 2021-12-16)
DX: J96.01 Acute respiratory failure with hypoxia (principal); J44.1 Chronic obstructive pulmonary disease with (acute) exacerbation; R64 Cachexia; E87.2 Acidosis; J98.11 Atelectasis; D13.0 Benign neoplasm of esophagus; Z20.822 Contact with and (suspected) exposure to COVID-19; C61 Malignant neoplasm of prostate; I10 Essential (primary) hypertension; H40.9 Unspecified glaucoma; E87.6 Hypokalemia; E78.5 Hyperlipidemia, unspecified; I16.0 Hypertensive urgency; F12.10 Cannabis abuse, uncomplicated; R13.12 Dysphagia, oropharyngeal phase; N40.0 Benign prostatic hyperplasia without lower urinary tract symptoms; Z87.891 Personal history of nicotine dependence; Z95.0 Presence of cardiac pacemaker; Z79.899 Other long term (current) drug therapy; E83.39 Other disorders of phosphorus metabolism
CPT/HCPCS: 36415; 70450; 71045; 71275; 74230; 80048; 80053; 80061; 80069; 83735; 83880; 84100; 84484; 85025; 93005; 94640; 94760; 96372; 96374; 96375; G0378; J0360; J0692; J1644; J1650; J2704; J2920; J2930; J3010; J3475; J3480; J3490; J7050; J7512; J7611; J7620; Q9967; S0028; U0002; U0003; U0005

== ENCOUNTER 2021-12-30 19:11 | Inpatient (IN) | payer MEDICARE, OTHER ==
[2021-12-30 20:25] LABS: SARS-CoV-2 NAA Rapid Test Not Detected (NotDetected)
[2021-12-30] MEDS ORDERED: predniSONE 20 MG TAB ONE (20:29)
[2021-12-30] MEDS ORDERED: Magnesium 2 GM/50 ML(in water) 2 GM in Premix Bag 1 BAG IVPB SCH (21:00)
[2021-12-30] MEDS ORDERED: Azithromycin 500 MG VIAL ONE (21:45)
[2021-12-30] MEDS ORDERED: cefTRIAXone\\ROCEPHIN 2 GM VIAL ONE (21:45)
[2021-12-30 21:54] LABS: #Lymphocytes 1.3 thou/uL (1.20-3.40); #Monocytes 0.6 thou/uL (0.11-0.59); #Neutrophils 8.8 thou/uL (1.40-6.50); %Basophils 0.4 % (0.0-1.0); %Eosinophils 0.2 % (0.0-10.0); %Lymphocytes 12.4 % (21.0-51.0); %Monocytes 5.9 % (0.0-10.0); %Neutrophils 81.1 % (42.0-75.0); Hemoglobin 12.7 g/dL (14.0-18.0); Mean Corpuscular HGB CONC 31.9 g/dL (32.0-36.0); Mean Corpuscular Hemoglobin 26.2 pg (27.0-31.0); Mean Corpuscular Volume 82.1 fL (78.0-98.0); Mean Platelet Volume 9.8 fL (7.4-10.4); Platelet Count 180 thou/uL (130-400); RBC Distribution Width 17.7 % (11.5-14.5); Red Blood Cell (RBC) Count 4.86 mill/uL (4.70-6.10); White Blood Cell (WBC) Count 10.8 thou/uL (4.8-10.8)
[2021-12-30 22:09] LABS: ALT (SGPT) 23 U/L (8-55); AST (SGOT) 22 U/L (5-34); Albumin 3.7 g/dL (3.4-4.8); Alkaline Phosphatase 73 U/L (40-110); Anion Gap 23 mmol/L (10-20); BUN (Urea Nitrogen) 36 mg/dL (8.4-25.7); Bilirubin, Total 0.7 mg/dL (0.2-1.2); Calc. Creatinine Clearance 0 mL/min (70-130); Calcium 9.6 mg/dL (7.8-10.44); Carbon Dioxide 20 mmol/L (23-31); Chloride 105 mmol/L (98-107); Estimated GFR 92; Globulin 4.8 g/dL (2.4-3.5); Glucose 108 mg/dL (83-110); Potassium 4.8 mmol/L (3.5-5.1); Protein, Total 8.5 g/dL (5.8-8.1); Sodium 143 mmol/L (136-145)
[2021-12-31] MEDS ORDERED: HYDROcodone/Acetaminophen 10/325 mg Tablet PO PRN (00:52)
[2021-12-31] MEDS ORDERED: Acetaminophen 325 MG TAB PO PRN (00:52)
[2021-12-31] MEDS ORDERED: Guaifenesin DM 100-10/5 ML UDCUP PO PRN (00:52)
[2021-12-31] MEDS ORDERED: Bisacodyl 5 MG TAB PO PRN (00:52)
[2021-12-31] MEDS ORDERED: cefTRIAXone\\ROCEPHIN 1 GM in Sodium Chloride 0.9% 100 ML IVPB SCH (01:00)
[2021-12-31 01:43] VITALS: BMI 19.3
[2021-12-31] MEDS: Acetylcysteine 20% 200 MG/ML 30 ML VIAL INH SCH ×4 (03:03→18:36)
[2021-12-31 04:29] LABS: ALT (SGPT) 19 U/L (8-55); AST (SGOT) 13 U/L (5-34); Albumin 3.4 g/dL (3.4-4.8); Alkaline Phosphatase 64 U/L (40-110); Anion Gap 17 mmol/L (10-20); BUN (Urea Nitrogen) 29 mg/dL (8.4-25.7); Bilirubin, Total 0.5 mg/dL (0.2-1.2); Calc. Creatinine Clearance 81 mL/min (70-130); Carbon Dioxide 26 mmol/L (23-31); Chloride 108 mmol/L (98-107); Estimated GFR 97; Globulin 3.7 g/dL (2.4-3.5); Glucose 136 mg/dL (83-110); Potassium 4.1 mmol/L (3.5-5.1); Protein, Total 7.1 g/dL (5.8-8.1); Sodium 147 mmol/L (136-145)
[2021-12-31 04:52] LABS: #Lymphocytes 0.6 thou/uL (1.20-3.40); #Monocytes 0.1 thou/uL (0.11-0.59); #Neutrophils 8.9 thou/uL (1.40-6.50); %Lymphocytes 6.5 % (21.0-51.0); %Monocytes 1.5 % (0.0-10.0); Hemoglobin 11.5 g/dL (14.0-18.0); Mean Corpuscular HGB CONC 31.2 g/dL (32.0-36.0); Mean Corpuscular Hemoglobin 25.7 pg (27.0-31.0); Mean Corpuscular Volume 82.4 fL (78.0-98.0); Mean Platelet Volume 8.9 fL (7.4-10.4); Platelet Count 130 thou/uL (130-400); Platelet Morphology Comment Appears Adequate; RBC Distribution Width 17.7 % (11.5-14.5); Red Blood Cell (RBC) Count 4.47 mill/uL (4.70-6.10); White Blood Cell (WBC) Count 9.7 thou/uL (4.8-10.8)
[2021-12-31] MEDS: methylPREDNISolone Sod Succ 40 MG VIAL IVP SCH ×3 (06:03→17:48)
[2021-12-31] MEDS: Mometasone 200 MCG/Formoterol 5 MCG 120 PUFF INHALER INH SCH ×2 (07:52→18:36)
[2021-12-31] MEDS ORDERED: Senokot 8.6 MG TAB PO SCH (09:00)
[2021-12-31] MEDS: Senokot 8.6 MG TAB PER TUBE SCH ×2 (09:40→21:49)
[2021-12-31] MEDS: Tamsulosin HCl 0.4 MG CAP PO SCH (09:40)
[2021-12-31] MEDS: Ferrous Sulfate 325 MG TAB PO SCH (09:40)
[2021-12-31] MEDS: Enoxaparin Sodium 40 MG/0.4 ML SYRINGE SC SCH (09:40)
[2021-12-31] MEDS: Atorvastatin Calcium 20 MG TAB PO SCH (21:49)
[2021-12-31] MEDS: Latanoprost 0.005% Ophth Soln 2.5 ml Bottle EA EYE SCH (21:50)
[2021-12-31] MEDS: cefTRIAXone\\ROCEPHIN 1 GM in Sodium Chloride 0.9% 100 ML IVPB SCH (21:50)
[2022-01-01] MEDS: Acetylcysteine 20% 200 MG/ML 30 ML VIAL INH SCH ×5 (00:29→23:53)
[2022-01-01] MEDS: methylPREDNISolone Sod Succ 40 MG VIAL IVP SCH (00:37)
[2022-01-01 04:34] LABS: ALT (SGPT) 21 U/L (8-55); AST (SGOT) 13 U/L (5-34); Albumin 3.7 g/dL (3.4-4.8); Alkaline Phosphatase 70 U/L (40-110); Anion Gap 17 mmol/L (10-20); BUN (Urea Nitrogen) 28 mg/dL (8.4-25.7); Bilirubin, Total 0.4 mg/dL (0.2-1.2); Calc. Creatinine Clearance 74 mL/min (70-130); Calcium 9.5 mg/dL (7.8-10.44); Carbon Dioxide 25 mmol/L (23-31); Chloride 111 mmol/L (98-107); Estimated GFR 95; Glucose 155 mg/dL (83-110); Potassium 3.4 mmol/L (3.5-5.1); Protein, Total 7.7 g/dL (5.8-8.1); Sodium 150 mmol/L (136-145)
[2022-01-01 05:15] LABS: #Lymphocytes 0.5 thou/uL (1.20-3.40); #Monocytes 0.5 thou/uL (0.11-0.59); #Neutrophils 12.6 thou/uL (1.40-6.50); %Lymphocytes 3.3 % (21.0-51.0); %Monocytes 3.4 % (0.0-10.0); %Neutrophils 93.2 % (42.0-75.0); Anisocytosis SLIGHT = 6-15 cells (100X) (0-5/hpf); Hemoglobin 11.9 g/dL (14.0-18.0); MDiff Complete? YES; Mean Corpuscular HGB CONC 31.3 g/dL (32.0-36.0); Mean Corpuscular Hemoglobin 25.9 pg (27.0-31.0); Mean Corpuscular Volume 82.8 fL (78.0-98.0); Mean Platelet Volume 11.3 fL (7.4-10.4); Platelet Count 137 thou/uL (130-400); Platelet Morphology Comment Appears Adequate; RBC Distribution Width 17.7 % (11.5-14.5); Red Blood Cell (RBC) Count 4.59 mill/uL (4.70-6.10); White Blood Cell (WBC) Count 13.5 thou/uL (4.8-10.8)
[2022-01-01] MEDS: Mometasone 200 MCG/Formoterol 5 MCG 120 PUFF INHALER INH SCH ×2 (06:53→18:15)
[2022-01-01] MEDS ORDERED: Potassium Chloride 20 MEQ TAB PO SCH (09:00)
[2022-01-01] MEDS: Ferrous Sulfate 325 MG TAB PO SCH (09:19)
[2022-01-01] MEDS: predniSONE 20 MG TAB PO SCH (09:19)
[2022-01-01] MEDS: Tamsulosin HCl 0.4 MG CAP PO SCH (09:19)
[2022-01-01] MEDS: Senokot 8.6 MG TAB PER TUBE SCH ×2 (09:19→20:28)
[2022-01-01] MEDS: Enoxaparin Sodium 40 MG/0.4 ML SYRINGE SC SCH (09:20)
[2022-01-01] MEDS: Brinzolamide 1% Ophth SUSP 10 ml Bottle EA EYE SCH ×2 (09:20→20:28)
[2022-01-01] MEDS: Atorvastatin Calcium 20 MG TAB PO SCH (20:28)
[2022-01-01] MEDS: Latanoprost 0.005% Ophth Soln 2.5 ml Bottle EA EYE SCH (20:28)
[2022-01-01] MEDS: cefTRIAXone\\ROCEPHIN 1 GM in Sodium Chloride 0.9% 100 ML IVPB SCH (20:29)
[2022-01-02 04:17] LABS: Anion Gap 20 mmol/L (10-20); BUN (Urea Nitrogen) 33 mg/dL (8.4-25.7); Calc. Creatinine Clearance 76 mL/min (70-130); Calcium 9.5 mg/dL (7.8-10.44); Carbon Dioxide 24 mmol/L (23-31); Chloride 115 mmol/L (98-107); Estimated GFR 95; Glucose 105 mg/dL (83-110); Sodium 154 mmol/L (136-145)
[2022-01-02 04:42] LABS: #Lymphocytes 1.4 thou/uL (1.20-3.40); #Monocytes 0.7 thou/uL (0.11-0.59); #Neutrophils 6.9 thou/uL (1.40-6.50); %Basophils 0.4 % (0.0-1.0); %Lymphocytes 15.9 % (21.0-51.0); %Monocytes 7.8 % (0.0-10.0); %Neutrophils 75.9 % (42.0-75.0); Hemoglobin 12.7 g/dL (14.0-18.0); Mean Corpuscular HGB CONC 32.3 g/dL (32.0-36.0); Mean Corpuscular Hemoglobin 26.9 pg (27.0-31.0); Mean Corpuscular Volume 83.4 fL (78.0-98.0); Mean Platelet Volume 10.9 fL (7.4-10.4); Platelet Count 111 thou/uL (130-400); Platelet Morphology Comment Appears Decreased; RBC Distribution Width 17.5 % (11.5-14.5); Red Blood Cell (RBC) Count 4.71 mill/uL (4.70-6.10); White Blood Cell (WBC) Count 9.1 thou/uL (4.8-10.8)
[2022-01-02] MEDS: Acetylcysteine 20% 200 MG/ML 30 ML VIAL INH SCH ×4 (07:01→18:59)
[2022-01-02] MEDS: Mometasone 200 MCG/Formoterol 5 MCG 120 PUFF INHALER INH SCH ×2 (07:01→19:01)
[2022-01-02] MEDS: Enoxaparin Sodium 40 MG/0.4 ML SYRINGE SC SCH (10:22)
[2022-01-02] MEDS: Ferrous Sulfate 325 MG TAB PO SCH (10:22)
[2022-01-02] MEDS: predniSONE 20 MG TAB PO SCH (10:22)
[2022-01-02] MEDS: Tamsulosin HCl 0.4 MG CAP PO SCH (10:22)
[2022-01-02] MEDS: Senokot 8.6 MG TAB PER TUBE SCH ×2 (10:22→21:03)
[2022-01-02] MEDS: Brinzolamide 1% Ophth SUSP 10 ml Bottle EA EYE SCH ×2 (10:23→21:03)
[2022-01-02] MEDS: cefTRIAXone\\ROCEPHIN 1 GM in Sodium Chloride 0.9% 100 ML IVPB SCH (21:03)
[2022-01-02] MEDS: Atorvastatin Calcium 20 MG TAB PO SCH (21:03)
[2022-01-02] MEDS: Latanoprost 0.005% Ophth Soln 2.5 ml Bottle EA EYE SCH (21:03)
[2022-01-03] MEDS: Acetylcysteine 20% 200 MG/ML 30 ML VIAL INH SCH ×2 (00:43→07:14)
[2022-01-03] MEDS: Mometasone 200 MCG/Formoterol 5 MCG 120 PUFF INHALER INH SCH (07:14)
[2022-01-03] MEDS: Senokot 8.6 MG TAB PER TUBE SCH (08:47)
[2022-01-03] MEDS: Ferrous Sulfate 325 MG TAB PO SCH (08:47)
[2022-01-03] MEDS: Tamsulosin HCl 0.4 MG CAP PO SCH (08:47)
[2022-01-03] MEDS: Enoxaparin Sodium 40 MG/0.4 ML SYRINGE SC SCH (08:47)
[2022-01-03] MEDS: Brinzolamide 1% Ophth SUSP 10 ml Bottle EA EYE SCH (08:47)
[2022-01-03] MEDS: predniSONE 20 MG TAB PO SCH (08:48)
[2022-01-03 12:14] VITALS: BP 115/70; TEMP 98
== END 2022-01-03 14:20 | disposition hospice, home (50) | DRG 189 ==
LOC: ERS 19:11 → IMCU/EMU 12-31 00:19 → 2NO 01-02 19:20
PROVIDERS: ADMIT Family Medicine; ATTEND Family Medicine
DX: J96.01 Acute respiratory failure with hypoxia (principal); Z66 Do not resuscitate; Z51.5 Encounter for palliative care; Z20.822 Contact with and (suspected) exposure to COVID-19; J18.9 Pneumonia, unspecified organism; J44.1 Chronic obstructive pulmonary disease with (acute) exacerbation; J44.0 Chronic obstructive pulmonary disease with (acute) lower respiratory infection; I10 Essential (primary) hypertension; H40.9 Unspecified glaucoma; F12.10 Cannabis abuse, uncomplicated; E78.5 Hyperlipidemia, unspecified; R13.12 Dysphagia, oropharyngeal phase; Z98.890 Other specified postprocedural states; Z95.0 Presence of cardiac pacemaker; Z85.46 Personal history of malignant neoplasm of prostate; Z99.81 Dependence on supplemental oxygen; Z93.1 Gastrostomy status; Z79.899 Other long term (current) drug therapy; Z79.52 Long term (current) use of systemic steroids; Z79.51 Long term (current) use of inhaled steroids; Z98.42 Cataract extraction status, left eye; Z98.41 Cataract extraction status, right eye; Z87.891 Personal history of nicotine dependence; Z82.49 Family history of ischemic heart disease and other diseases of the circulatory system
CPT/HCPCS: 36415; 71045; 80048; 80053; 84145; 84484; 85025; 85379; 93005; 94640; J0132; J0456; J0696; J1650; J2920; J3475; J3490; J7512; J7620